=== PATIENT | male | born 1950 | race American Indian/Alaskan Native ===

== ENCOUNTER 2019-05-09 08:43 | Day surgery (SDC) | payer OTHER ==
[2019-05-09] MEDS ORDERED: NACL 0.9% 1000 ML 1,000 ML ONE (08:57)
[2019-05-09] MEDS ORDERED: NACL 0.9% 1000 ML 1,000 ML IV SCH (09:00)
[2019-05-09] MEDS ORDERED: DIPRIVAN 10 MG/ML IV ONE ×2 (09:56)
[2019-05-09] MEDS ORDERED: XYLOCAINE 2% INFILTRATI ONE (09:57)
--- NOTE | 2019-05-09 10:38 | Anesthesia Day of Surgery ---
Anesthesia Day of Surgery - Day of Surgery Patient Examined: Yes Patient H&P Reviewed: Yes Patient is NPO: Yes
--- NOTE | 2019-05-09 10:38 | Anesthesia Consultation ---
Anesthesia Consult and Med Hx Date of service: 05/09/19 - Airway Anesthetic Teeth Evaluation: Dentures ROM Head & Neck: Adequate Mental/Hyoid Distance: Adequate Mallampati Class: Class III Intubation Access Assessment: Possibly Difficult - Pulmonary Exam CTA: Yes - Cardiac Exam Cardiac Exam: RRR - Pre-Operative Health Status ASA Pre-Surgery Classification: ASA3 Proposed Anesthetic Plan: MAC - Pulmonary Hx Smoking: No Hx Respiratory Symptoms: No - Cardiovascular System Hx Hypertension: Yes Hx Heart Attack/AMI: No Hx Cardia Arrhythmia: No (hx arrythmia noted in chart however patient denies) - Central Nervous System CVA: No - Gastrointestinal Hx Gastroesophageal Reflux Disease: No - Endocrine Hx Renal Disease: No Hx Liver Disease: No Hx Insulin Dependent Diabetes: Yes Hx Thyroid Disease: No - Other Systems Hx Obesity: No
--- NOTE | 2019-05-09 11:00 | Operative Report ---
Operative Report Operative Report: Date of procedure: 05/09/2019 Procedure: Colonoscopy with Multiple Cold Snare polypectomies, Hot Biopsy Po lypectomy, Ablation of colon polyps and Multiple submucosal injections. Attending physician: Carlos Enrique Nance M.D. Real Estate Operations Manager: Carlos Enrique Nance M.D. Indication: Patient is a 69-year-old male who presents for screening colonoscopy. This colonoscopy serves to evaluate patient so that treatment may be directed based on the findings. Consent: Informed consent was obtained after advising the patient and family regarding nature of this procedure, its indications, potential benefits as well as possible complications including but not limited to bleeding perforation and adverse reaction to medication, infection as well as other cardiopulmonary complications. An informed written and verbal consent was then obtained after due opportunity was provided for questions and answers. Monitoring: Patient was monitored continuously with pulse oximetry and electrocardiographic recordings as well as blood pressure recordings. Vital signs remained stable throughout this procedure with no untoward events. Preoperative assessment: Patient was assessed immediately prior to this procedure for capacity to tolerate monitored anesthesia care and moderate sedation as well as general anesthesia. Patient's ASA classification is 2, Mallampati class is 2, Hyomental distance is 3. Instrument: Olympus video colonoscope Medications: Propofol given intravenously in divided doses. For details please refer to anesthesia records. Description of procedure: Patient was placed in the left lateral decubitus position after achieving sedation, a digital rectal examination was performed following which the colonoscope was introduced into the anal verge and advanced to the cecum which was identified by the cecal valve, the appendiceal orifice, as well as by the cecal strap and direct transillumination. The colonoscope was subsequently withdrawn with careful inspection of all mucosal surfaces. Patient tolerated this procedure well and was subsequently taken to the recovery room. The following findings were noted. Findings: The preparation was poor. The patient had some retained stool in all sections of the colon. Patient had extensive melanosis coli in all sections of the colon. The colon however was moderately tortuous. In the ileocecal valve, patient had an 8 mm sessile polyp which was elevated with submucosal injection of saline and removed by cold snare polypectomy. At the hepatic flexure, patient had another 8 mm flat polyp which was elevated with submucosal injection of saline and removed by cold snare polypectomy. In the sigmoid colon, patient had a flat polyp which is elevated by submucosal injection and and removed by hot biopsy polypectomy. It measured approximate 5 mm. There was another flat polyp which was removed similarly. In the rectum, patient had 2 diminutive po lyps that were ablated. On a retroflexed view of the anal verge, patient had internal hemorrhoids. Impression: Ileocecal valve polyp status post cold snare polypectomy and submucosal injection. Hepatic flexure polyp status post submucosal injection cold snare polypectomy. Sigmoid colon polyp status post hot biopsy polypectomy. Sigmoid colon polyps status post ablation. Rectal polyps status post ablation Melanosis coli Retained stool poor colonoscopic preparation Internal hemorrhoids Plan: Follow pathology report. High-fiber diet. Consider repeat colonoscopy in 6-12 months due to presence of multiple polyps and poor colonoscopic preparation.
--- NOTE | 2019-05-09 11:01 | Discharge Summary ---
Short Stay Discharge Plan Activity: advance as tolerated Weight Bearing Status: Weight Bear as Tolerated Diet: regular Follow up with: PRIMARY CARE, [Primary Care Provider] - 7 Days
[2019-05-09] MEDS ORDERED: WATER FOR IRRIG STERILE IR ONE (11:03)
[2019-05-09 11:27] VITALS: BP 114/65
--- NOTE | 2019-05-09 15:11 | Post Anesthesia Evaluation ---
- Post Anesthesia Evaluation Patient Participated: Yes Airway Patent: Yes Stable Respiratory Function: Yes Nausea/Vomiting: No Temp > 96.8F: Yes Pain Manageable: Yes Adequeate Hydration: Yes Anesthesia Complications: No Block Receding Appropriately: Not Applicable Patient on Ventilator: No
== END 2019-05-09 11:28 | disposition home or self-care (01) ==
LOC: GIO 08:43
PROVIDERS: ATTEND Internal Medicine Gastroenterology
DX: Z12.11 Encounter for screening for malignant neoplasm of colon (principal); D12.3 Benign neoplasm of transverse colon; K64.8 Other hemorrhoids; K63.89 Other specified diseases of intestine; I42.9 Cardiomyopathy, unspecified; E78.00 Pure hypercholesterolemia, unspecified; I10 Essential (primary) hypertension; K21.9 Gastro-esophageal reflux disease without esophagitis; E11.9 Type 2 diabetes mellitus without complications; Z79.82 Long term (current) use of aspirin; Z79.4 Long term (current) use of insulin; Z79.899 Other long term (current) drug therapy; Z98.890 Other specified postprocedural states
CPT/HCPCS: 45381; 45384; 45385; 45388; 82962; 88305; J2704; J7030

== ENCOUNTER 2020-11-04 18:51 | Emergency (ER) | payer OTHER | END 2020-11-04 21:01 | disposition left against medical advice (07) | LOC: ED 18:51 | DX: R10.9 Unspecified abdominal pain (principal); Z53.21 Procedure and treatment not carried out due to patient leaving prior to being seen by health care provider ==